=== PATIENT | female | born 1990 | race Two or more races ===

== ENCOUNTER 2025-02-01 10:00 | Day surgery (SDC) | payer OTHER ==
[2025-01-20 08:41] VITALS: BP 115/78
[2025-01-20 09:29] LABS: BASO % 0.4 % (0.1-1.2); EOS # 0.46 (0.04-0.54); EOS % 4.7 % (0.7-7.0); LYMPH # 2.35 (1.18-3.74); LYMPH % 23.9 % (19.3-53.1); MEAN PLATELET VOLUME 12.70 fl (9.4-12.4); MONO # 0.65 (0.24-0.82); MONO % 6.6 % (4.7-12.5); NEUT # 6.32 (1.56-6.13); NEUT % 64.2 % (34.0-71.1); RED CELL DISTRIBUTION WIDTH 13.2 % (11.6-14.4)
[2025-01-20 09:33] LABS: URINE APPEARANCE Clear; URINE BILIRRUBIN Negative (NEGATIVE); URINE BLOOD Negative; URINE COLOR Yellow; URINE GLUCOSE Negative (NEGATIVE); URINE KETONE Negative (NEGATIVE); URINE LEUKOCYTE Negative; URINE NITRATE Negative; URINE PROTEIN Negative (NEGATIVE); URINE UROBILINOGEN 0.2 E.U./dl
[2025-01-20 09:37] LABS: URINE BACTERIA 533.9 uL (0.0-1933); URINE EPITHELIAL CELLS 5.9 uL (0.0-38.8); URINE RBC 11.8 uL (0.0-20.8)
[2025-01-20 09:42] LABS: URINE CAST 0.00 uL (0.0-1.40); URINE WBC 1.0 uL (0.0-23.2)
[2025-01-20 09:57] LABS: INR 1.08
[2025-01-20 10:27] LABS: ALT/SGPT 21.0 U/L (12-78); AST/SGOT 17.0 U/L (15-37); BILIRUBIN TOTAL 0.89 mg/dL (0.3-1.2); BUN CREA RATIO 19.0 (7.0-25.0); CREATININE SERUM 0.7 mg/dL (0.55-1.02); GFR 96.37; GLOBULINA 3.7 G/DL (2.4-3.5); GLUCOSE FASTING 82.0 mg/dL (65-100); OSMOLALITY SERUM 280.0 MOSM/KG (275-295)
[~2025-02-01] VITALS: Ht 162.6 cm; Wt 72.6 kg
[~2025-02-01 10:00] MED LIST: ACID CONTROLLER10 MG PO
[2025-02-01] MEDS ORDERED: CEFAZOLIN SODIUM 1,000 MG VIAL IV ONE (11:00)
[2025-02-01] MEDS ORDERED: SUGAMMADEX SODIUM 200 MG/2 ML VIAL IV ONE (12:18)
[2025-02-01] MEDS ORDERED: ONDANSETRON HCL 2 MG/ML VIAL ONE (13:21)
[2025-02-01] MEDS ORDERED: ONDANSETRON HCL 2 MG/ML VIAL IV ONE (13:25)
== END 2025-02-01 15:25 | disposition home or self-care (01) ==
LOC: CIR.AMB 10:00
PROVIDERS: ATTEND Surgery
DX: K80.10 Calculus of gallbladder with chronic cholecystitis without obstruction (principal)